=== PATIENT | female | born 1980 | race Caucasian/White ===

== ENCOUNTER 2019-03-25 09:04 | Emergency (ER) | payer OTHER ==
[~2019-03-25] VITALS: Ht 165.1 cm; Wt 68.5 kg
[2019-03-25 09:17] VITALS: Ht 165.1 cm; Wt 68.5 kg
[2019-03-25 11:05] VITALS: BP 132/76
== END 2019-03-25 11:05 | disposition home or self-care (01) ==
LOC: ED 09:04
DX: S61.412A Laceration without foreign body of left hand, initial encounter (principal); E11.9 Type 2 diabetes mellitus without complications; Z98.890 Other specified postprocedural states; X78.1XXA Intentional self-harm by knife, initial encounter; Y93.89 Activity, other specified; Y92.89 Other specified places as the place of occurrence of the external cause; Y99.8 Other external cause status
CPT/HCPCS: 90715; J2001